=== PATIENT | female | born 1930 | race Caucasian/White ===

== ENCOUNTER 2018-02-09 08:30 | Emergency (ER) | payer OTHER, MEDICARE ==
[~2018-02-09] VITALS: Ht 147.3 cm; Wt 52.6 kg
[2018-02-09 08:30] VITALS: BP_SYST 148
[2018-02-09] MEDS ORDERED: KETOROLAC TROMETHAMINE 60 MG/2 ML VIAL IM ONE (09:15)
[2018-02-09 09:51] LABS: BILIRUBIN,URINE NEGATIVE (NEGATIVE); BLOOD, URINE 2+ (NEGATIVE); CLARITY/URINE SL HAZY (CLEAR); COLOR,URINE YELLOW (YELLOW); GLUCOSE,URINE NEGATIVE (NEGATIVE); KETONES,URINE NEGATIVE (NEGATIVE); LEUKOCYTE ESTERASE ,URINE 1+ (NEGATIVE); NITRITE, URINE NEGATIVE (NEGATIVE); PROTEIN URINE TRACE (NEGATIVE); UROBILINOGEN,URINE 0.2 (0.2-1.0)
[2018-02-09 10:09] LABS: BACTERIA,URINE MODERATE /HPF (None Seen)
[2018-02-09 10:10] LABS: MUCUS,URINE 1+ /LPF (None Seen)
[2018-02-09 10:18] VITALS: BP_SYST 147
== END 2018-02-09 10:18 | disposition home or self-care (01) ==
LOC: SED 08:30
DX: G89.29 Other chronic pain (principal); M54.5 Low back pain; J45.909 Unspecified asthma, uncomplicated; I10 Essential (primary) hypertension; Z90.49 Acquired absence of other specified parts of digestive tract; Z90.89 Acquired absence of other organs; Z90.710 Acquired absence of both cervix and uterus; Z88.1 Allergy status to other antibiotic agents; Z88.6 Allergy status to analgesic agent; Z88.8 Allergy status to other drugs, medicaments and biological substances
CPT/HCPCS: 72110; 81000; 87086; 87186; 96372; 99284; J1885